=== PATIENT | female | born 1985 | race Caucasian/White ===

== ENCOUNTER 2020-03-24 23:27 | Emergency (ER) | payer BC, SELFPAY ==
[2020-03-24 23:31] VITALS: BP 153/108; PULSE 92; RESP 20; TEMP 36.7; O2SAT 100
[2020-03-25] VITALS (7 sets, daily range): BP systolic 125–155; BP diastolic 74–106; PULSE 68–100; RESP 12–16; TEMP 37.3; O2SAT 97–100
--- NOTE | 2020-03-25 00:29 | ECG_ITS ---
Measurements Intervals [place] Rate: 85 P: 55 [place]: 161 QRS: 34 QRSD: 85 T: 39 QT: 359 QTc: 427 Interpretive Statements SINUS RHYTHM POSSIBLE LEFT ATRIAL ENLARGEMENT BASELINE ARTIFACT- I, II, III, AVR, AVL,A VF BORDERLINE ECG Electronically Signed On 03-25-2020 7:22:44 CDT by Dave Smith D.O.
[2020-03-25 00:41] LABS: Basophils Absolute Auto 0.1 K/mm3 (0.0-0.1); Eosinophils Absolute Auto 0.2 K/mm3 (0-0.3); Hematocrit 37.4 % (37.0-47.0); Immature Granulocyte Absolute 0.01 K/mm3 (0.00-0.031); Immature Granulocyte Percent A 0.1 % (0-0.5); Lymphocytes Absolute Auto 2.71 K/mm3 (0.9-3.2); Lymphocytes Percent Auto 39.1 % (18.3-44.2); Mean Corpuscular HGB Conc 32.1 g/dl (32-36); Mean Platelet Volume 11.3 fl (7.4-10.4); Monocytes Absolute Auto 0.6 K/mm3 (0.1-0.6); Monocytes Percent Auto 8.4 % (2.6-8.5); Neutrophils Absolute Auto 3.4 K/mm3 (1.3-6.7); Neutrophils Percent Auto 48.4 % (45.5-73.1); Platelet Count Result 257 k/mm3 (150-375); Red Blood Count 4.45 M/mm3 (4.2-5.4); Red Cell Distribution Width 13.5 % (11.5-14.5); White Blood Count 6.9 K/mm3 (4.5-10.0)
[2020-03-25 00:53] LABS: Blood Urea Nitrogen 8 mg/dL (7-17); Calcium 9.5 mg/dL (8.4-10.2); Carbon Dioxide 25 mmol/L (22-30); Chloride 103 mmol/L (98-107); Estimated CRCL calculation 141 ml/min; Estimated Glomerular Filt Rate > 60; Glucose 109 mg/dL (65-105); Potassium 3.6 mmol/L (3.4-5.0); Sodium 138 mmol/L (137-145)
--- NOTE | 2020-03-25 01:57 | ED.DIZZY ---
HPI - Dizziness General Chief Complaint: Dizziness Stated Complaint: dizziness Time Seen by Provider: 03/25/20 01:39 Source: patient Mode of arrival: ambulatory Limitations: no limitations History of Present Illness HPI Narrative: This patient is a 35 year old female who presents for evaluation of dizziness. She reports intermittent dizziness since Monday. 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 She reports her dizziness is worse with bending, standing and when she has to wear her mask at work. She describes it as intermittent episodes in which she feels like she is going to pass out. She feels better now. She denies any other symptoms. Related Data Allergies Allergy/AdvReac Type Severity Reaction Status Date / Time Sulfa (Sulfonamide Allergy Unknown Rash Verified 04/04/17 13:20 Antibiotics) Review of Systems Review of Systems: All systems reviewed & are unremarkable except as noted in HPI and below Constitutional: Constitutional: Denies chills and Denies fever(s) Eyes: Eyes: Reports no additional eye complaints and Denies change in vision ENT: Reports dizziness Cardiovascular: Cardiovascular: Denies chest pain Respiratory: Respiratory: Denies cough and Denies dyspnea Gastrointestinal: Gastrointestinal: Denies abdominal pain, Denies diarrhea, Denies nausea and Denies vomiting Musculoskeletal: Musculoskeletal: Denies back pain Neurologic: Reports dizziness PMFSH Past Medical History Medical History (Updated 03/25/20 @ 03:50 by Kimberly Gomez MD) Patient denies medical problems Social History Social History (Updated 03/25/20 @ 01:58 by Kimberly Gomez MD) Smoking status: Never smoker Exam Narrative: Exam Narrative: GENERAL: Well-appearing, well-nourished, and in no acute distress. HEAD: Normocephalic, atraumatic EYES: PERRLA and EOMI, conjunctiva clear without discharge EARS: TM's clear bilaterally without erythema or dullness NOSE: Nares clear, no rhinorrhea or epistaxis THROAT:Mucous membranes moist, Oropharynx normal without erythema, exudate, peritonsillar swelling or fluctuance NECK: Supple, without lymphadenopathy or mass RESPIRATORY: No respiratory distress, Airway patent, Respirations non-labored, Clear to auscultation without rales, rhonchi or wheeze HEART: Regular rate and rhythm. No murmur heard. Normal peripheral pulses. ABDOMEN: Soft, nontender, nondistended, normal active bowel sounds. No masses. No rebound or guarding, No organomegaly. EXTREMITIES: No edema, normal strength with full range of motion. SKIN: Warm, dry, normal color without rash NEURO: Alert and oriented x3. CN 2-12 grossly intact. No focal deficits. PSYCH: Normal mood and affect. Course Reevaluation(s) Reevaluation #1: Nursing staff states patient feels better. She has no focal deficits. Date: 03/25/20 Time: 03:47 Vital Signs Vital signs: Vital Signs Temperature 98.1 F 03/24/20 23:31 Pulse Rate 92 03/24/20 23:31 Respiratory Rate 20 03/24/20 23:31 Blood Pressure 153/108 H 03/24/20 23:31 Pulse Oximetry 100 03/24/20 23:31 Temperature 99.1 F 03/25/20 00:26 Pulse Rate 100 03/25/20 03:55 Respiratory Rate 15 03/25/20 03:55 Blood Pressure 133/84 03/25/20 03:55 Pulse Oximetry 97 03/25/20 03:55 MDM - Dizziness Lab Data Attestation: I reviewed the patient's lab results. Result diagrams: 03/25/20 00:35 03/25/20 00:35 Labs: Lab Results 03/25/20 03/25/20 Range/Units 00:35 00:35 WBC 6.9 (4.5-10.0) K/mm3 RBC 4.45 (4.2-5.4) M/mm3 Hgb 12.0 (12.0-15.0) g/dL Hct 37.4 (37.0-47.0) % MCV 84.0 (80-100) fl MCH 27.0 (26-34) pg MCHC 32.1 (32-36) g/dl RDW 13.5 (11.5-14.5) % Plt Count 257 (150-375) k/mm3 MPV 11.3 H (7.4-10.4) fl Immature Gran % (Auto) 0.1 (0-0.5) % Neut % (Auto) 48.4 (45.5-73.1) % Lymph % (Auto) 39.1 (18.3-44.2) % [place] % (Auto) 8.4 (2.6-8
[2020-03-25] MEDS: MECLIZINE HCL 25 MG TABLET PO (02:18)
== END 2020-03-25 03:55 | disposition home or self-care (01) ==
PROVIDERS: Emergency Provider General Practice
DX: R42 Dizziness and giddiness (principal); R94.31 Abnormal electrocardiogram [ECG] [EKG]
CPT/HCPCS: 36415; 80048; 81025; 85025; 93005; 99284; A9270

== ENCOUNTER 2020-03-26 08:23 | Emergency (ER) | payer BC, SELFPAY ==
[2020-03-26 08:27] VITALS: BP 155/91; PULSE 84; RESP 16; TEMP 37.1; O2SAT 100
--- NOTE | 2020-03-26 08:32 | ECG_ITS ---
Measurements Intervals [place] Rate: 79 P: 45 [place]: 165 QRS: 29 QRSD: 99 T: 24 QT: 365 QTc: 419 Interpretive Statements SINUS RHYTHM BASELINE ARTIFACT- I, III, AVL NORMAL ECG Electronically Signed On 03-26-2020 8:39:22 CDT by Dave Smith D.O.
--- NOTE | 2020-03-26 08:57 | ED.DIZZY ---
HPI - Dizziness General Chief Complaint: Dizziness Stated Complaint: STILL HAVING DIZZINESS, WEAK HANDS Time Seen by Provider: 03/26/20 08:35 History of Present Illness HPI Narrative: Dizziness for the past few days. Continuos. worse with head movement and standing. She also noticed that wearing mask seems to increase her symptoms. Associated with SOB and tingling in hands. She was seen here for this 2 days ago and had negative work-up. She was discharged with meclizine prescription. She returns today because she was on her way to work and her symptoms once again worsened. No nausea, vomiting, fever. She has a h/o pseudotumor cerebri. Related Data Allergies Allergy/AdvReac Type Severity Reaction Status Date / Time Sulfa (Sulfonamide Allergy Unknown Rash Verified 03/26/20 08:30 Antibiotics) Review of Systems Review of Systems: All systems reviewed & are unremarkable except as noted in HPI and below Constitutional: Constitutional: Denies fever(s) Eyes: Eyes: Denies change in vision ENT: Reports dizziness and Denies sore throat Cardiovascular: Cardiovascular: Denies chest pain Respiratory: Respiratory: Denies cough Gastrointestinal: Gastrointestinal: Denies abdominal pain, Denies nausea and Denies vomiting Genitourinary: Genitourinary: Denies dysuria Neurologic: Reports numbness Psychiatric: Psychiatric: Reports anxiety [facility] Past Medical History Medical History Patient denies medical problems Social History Social History Smoking status: Never smoker Gender identity (if verbalized by the patient): Female Exam Const: General: healthy appearing, no acute distress and alert Orientation/consciousness: patient oriented x3 HENMT: Head: normal to inspection Ears: TM's normal bilaterally Eyes: Conjunctivae: conjunctivae normal Pupils: Equal, round and reactive pupils present EOM: EOMs intact bilaterally Neck: Neck: normal visual inspection and no lymphadenopathy Chest: Chest palpation & inspection: no tenderness Resp: Effort & Inspection: normal respiratory effort Auscultation: clear to auscultation bilaterally, no rales, no rhonchi and no wheezes Cardio: Jugular venous distension: no JVD Rate: regular rate Rhythm: regular rhythm Heart sounds: no murmurs GI: Inspection: non-distended GI Palp: Yes Soft to palpation and No Tenderness to palpation present (GI) Skin: General skin exam: normal color Neuro: General: patient oriented x3, moves all extremities, no focal motor deficits and CN's II-XI intact bilaterally Cranial nerves: Yes Nystagmus not present Speech: normal speech Extrem: General: normal to inspection Psych: Appearance: grossly normal and well kempt Mental Status: mental status grossly normal Affect: normal affect Attitude: cooperative Course Vital Signs Vital signs: Vital Signs Temperature 37.1 C 03/26/20 08:27 Pulse Rate 84 03/26/20 08:27 Respiratory Rate 16 03/26/20 08:27 Blood Pressure 155/91 H 03/26/20 08:27 Pulse Oximetry 100 03/26/20 08:27 Temperature 37.1 C 03/26/20 08:27 Pulse Rate 76 03/26/20 10:41 Respiratory Rate 18 03/26/20 10:41 Blood Pressure 137/73 03/26/20 10:41 Pulse Oximetry 99 03/26/20 10:41 MDM - Dizziness MDM Narrative Medical decision making narrative: She seems to have mild vertigo. Walking with stable gait. No sign of otitis. Does not require further emergent imaging. Will need outpatient follow-up if symptoms continue Medical Records Attestation: I reviewed the patient's medical records. Lab Data Attestation: I reviewed the patient's lab results. Result diagrams: 03/26/20 08:53 03/26/20 08:53 Labs: Lab Results 03/26/20 03/26/20 Range/Units 08:53 08:53 WBC 6.6 (4.5-10.0) K/mm3 RBC 4.58 (4.2-5.4) M/mm3 Hgb 12.4 (12.0-15.0) g/dL Hct 38.8 (37.
[2020-03-26 09:11] VITALS: BP 142/84; PULSE 71
[2020-03-26 09:12] VITALS: BP 142/94; BP 143/96; PULSE 74; PULSE 75
[2020-03-26 09:18] LABS: Basophils Absolute Auto 0.1 K/mm3 (0.0-0.1); Basophils Percent Auto 1.1 % (0.2-1.2); Eosinophils Absolute Auto 0.2 K/mm3 (0-0.3); Eosinophils Percent Auto 3.7 % (0-4.4); Hematocrit 38.8 % (37.0-47.0); Hemoglobin 12.4 g/dL (12.0-15.0); Immature Granulocyte Absolute 0.02 K/mm3 (0.00-0.031); Immature Granulocyte Percent A 0.3 % (0-0.5); Lymphocytes Absolute Auto 2.39 K/mm3 (0.9-3.2); Lymphocytes Percent Auto 36.4 % (18.3-44.2); Mean Corpuscular Hemoglobin 27.1 pg (26-34); Mean Corpuscular Volume 84.7 fl (80-100); Mean Platelet Volume 12.2 fl (7.4-10.4); Monocytes Absolute Auto 0.6 K/mm3 (0.1-0.6); Monocytes Percent Auto 8.8 % (2.6-8.5); Neutrophils Absolute Auto 3.3 K/mm3 (1.3-6.7); Neutrophils Percent Auto 49.7 % (45.5-73.1); Platelet Count Result 262 k/mm3 (150-375); Red Blood Count 4.58 M/mm3 (4.2-5.4); Red Cell Distribution Width 13.7 % (11.5-14.5); White Blood Count 6.6 K/mm3 (4.5-10.0)
[2020-03-26 09:24] LABS: Blood Urea Nitrogen 9 mg/dL (7-17); Carbon Dioxide 27 mmol/L (22-30); Chloride 102 mmol/L (98-107); Estimated CRCL calculation 123 ml/min; Estimated Glomerular Filt Rate > 60; Glucose 109 mg/dL (65-105); Potassium 3.8 mmol/L (3.4-5.0); Sodium 138 mmol/L (137-145)
[2020-03-26] MEDS: MECLIZINE HCL 25 MG TABLET PO (09:50)
--- NOTE | 2020-03-26 09:56 | PC.NURSE ---
Irrigated pts ears with no issue. Pt stated that she felt more dizzy during irrigation. Moderate amounts of yellow drainage came out of both ears.
[2020-03-26 10:41] VITALS: BP 137/73; PULSE 76; RESP 18; O2SAT 99
--- NOTE | 2020-03-26 10:41 | PC.NURSE ---
Pt was walked in fam. Pt states she feels a little dizzy, but not as bad as before. Will inform Dr. Fischer
== END 2020-03-26 11:24 | disposition home or self-care (01) ==
PROVIDERS: Emergency Provider Emergency Medicine
DX: R42 Dizziness and giddiness (principal)
CPT/HCPCS: 36415; 80048; 81025; 85025; 93005; 99284; A9270

== ENCOUNTER 2020-04-17 13:51 | Outpatient (CLI) | payer BC, SELFPAY ==
--- NOTE | 2020-04-17 | ECHO_ITS ---
Patient Info Name: Kathy Waters Age: 35 years : 1985 Gender: Female Ht: 66 in Wt: 257 lbs BSA: 2.39 m2 HR: 86 bpm BP: 140 / 84 mmHg Technical Quality: Good Exam Date: 04/17/2020 2:21 PM Exam Location: [facility] Patient Status: Outpatient Admit Date: 04/17/2020 Staff Ordering Physician: Juan Silverio MD Director Of Tax Services: Yu Alvarenga RDCS Attending Provider: Juan Silverio MD Referring Physician: Jean Claude DILLON; Exam Type: CA echo doppler color flow Study Info Indications R55 - Syncope and collapse Complete two-dimensional, color flow and Doppler transthoracic echocardiogram is performed. Summary 1. Left ventricular chamber dimension is normal. 2. Left ventricular systolic function is normal, estimated at 60-65%. 3. The left ventricular diastolic function is normal. 4. E/e' 7 is not elevated. 5. There is trace tricuspid valve regurgitation. 6. No pulmonary hypertension, estimated pulmonary arterial systolic pressure is 31 mmHg. Left Ventricle E/e' 7 is not elevated. Left ventricular chamber dimension is normal. Left ventricular systolic function is normal, estimated at 60-65%. The left ventricular diastolic function is normal. Right Ventricle Right ventricular chamber dimension is normal. Right ventricular systolic function is normal. Left Atria Left atrial chamber dimension is normal. Right Atria Right atrial chamber dimension is normal. Aortic Valve The aortic valve is trileaflet. There is no aortic valve stenosis. There is no aortic valve regurgitation. Pulmonic Valve There is no pulmonic regurgitation. Mitral Valve There is no mitral valve stenosis. There is no mitral valve regurgitation. Tricuspid Valve There is trace tricuspid valve regurgitation. No pulmonary hypertension, estimated pulmonary arterial systolic pressure is 31 mmHg. Pericardium/Pleural There is no pericardial effusion. Inferior Vena Cava Normal inferior vena cava with >50% collapse upon inspiration consistent with normal right atrial pressure, 5 mmHg. Aorta The aortic root size at the sinus of Valsalva is normal. Left Ventricular Outflow Tract Name Value Normal LVOT 2D LVOT Diameter 1.9 cm LVOT Doppler LVOT Peak Gradient 6 mmHg LVOT Mean Gradient 3 mmHg LVOT VTI 24 cm LVOT VTI/AV VTI Ratio 0.8 LVOT Stroke Volume 66 ml LVOT CO 5.4 l/min LVOT CI 2.3 l/min/m2 Pulmonic Valve Name Value Normal RVOT Doppler RVOT Peak Gradient 5 mmHg PV Doppler PV Peak Gradient 7 mmHg Mitral Valve -------
== END 2020-04-17 13:52 | disposition home or self-care (01) ==
PROVIDERS: PCP Emergency Medicine; Visit Provider Emergency Medicine
DX: R55 Syncope and collapse (principal)
CPT/HCPCS: 93306

== ENCOUNTER 2022-05-13 07:39 | Outpatient (CLI) | payer BC, SELFPAY ==
--- NOTE | 2022-05-13 | ECHO_ITS ---
Patient Info Name: Kathy Waters Age: 37 years : 1985 Gender: Female Ht: 65 in Wt: 260 lbs BSA: 2.39 m2 HR: 81 bpm BP: 122 / 92 mmHg Technical Quality: Good Exam Date: 05/13/2022 8:19 AM Exam Location: [facility] Patient Status: Outpatient Admit Date: 05/13/2022 Staff Ordering Physician: GordonLuly Benefits Coordinator: Yu Alvarenga RDCS Attending Provider: Gordon, Luly GUPTA Referring Physician: Gordon WOLFE; Exam Type: CA echo doppler color flow Study Info Indications I42.9 - Cardiomyopathy, unspecified Complete two-dimensional, color flow and Doppler transthoracic echocardiogram is performed. Summary 1. Complete two-dimensional, color flow and Doppler transthoracic echocardiogram is performed. 2. Left ventricular chamber dimension is normal. 3. Left ventricular systolic function is normal, estimated at 60-65%. 4. The left ventricular diastolic function is normal. 5. E/e' 7 is not elevated. 6. Global longitudinal strain is normal at -18.6%. 7. There is trace mitral valve regurgitation. 8. There is trace tricuspid valve regurgitation. 9. No pulmonary hypertension, estimated pulmonary arterial systolic pressure is 30 mmHg. Left Ventricle E/e' 7 is not elevated. Global longitudinal strain is normal at -18.6%. Left ventricular chamber dimension is normal. Left ventricular systolic function is normal, estimated at 60-65%. The left ventricular diastolic function is normal. Right Ventricle Right ventricular systolic function is normal and with normal TAPSE 2.1 cm. Right ventricular chamber dimension is normal. Left Atria Left atrial chamber dimension is normal. Right Atria Right atrial chamber dimension is normal. Aortic Valve The aortic valve is trileaflet. There is no aortic valve stenosis. There is no aortic valve regurgitation. Pulmonic Valve There is no pulmonic regurgitation. Mitral Valve There is no mitral valve stenosis. There is trace mitral valve regurgitation. Tricuspid Valve There is trace tricuspid valve regurgitation. No pulmonary hypertension, estimated pulmonary arterial systolic pressure is 30 mmHg. Pericardium/Pleural There is no pericardial effusion. Inferior Vena Cava Normal inferior vena cava with >50% collapse upon inspiration consistent with normal right atrial pressure, 5 mmHg. Aorta The aortic root size at the sinus of Valsalva is normal. Left Ventricular Outflow Tract Name Value Normal LVOT 2D LVOT Diameter 2.0 cm LVOT Doppler LVOT Peak Gradient 5 mmHg LVOT Mean Gradient 3 mmHg LVOT VTI 22 cm LVOT VTI/AV VTI Ratio 0.9 LVOT Stroke Volume 69 ml LVOT CO 5.2 l/min LVOT CI 2.2 l/min/m2 Pulmonic Valve Name Value Normal
== END 2022-05-13 07:40 | disposition home or self-care (01) ==
LOC: ANHCARD 07:40
PROVIDERS: Visit Provider Nurse Practitioner Family
DX: I42.9 Cardiomyopathy, unspecified (principal)
CPT/HCPCS: 93306

== ENCOUNTER 2022-05-23 17:43 | Outpatient (CLI) | payer BC, SELFPAY ==
--- NOTE | ~2022-05-23 | CT_ITS ---
EXAMINATION: CT brain wo con DATE: 05/23/2022 18:37 INDICATION: CRAMP AND SPASM . TECHNIQUE: Computed tomography (CT) of the head was performed without intravenous contrast. The mA wa s adjusted according to patient size. Iterative reconstruction technique was employed. The dose-lengt h product was 605.33 mGy-cm. COMPARISON: None FINDINGS: No acute intracranial hemorrhage or extra-axial fluid collection. No hydrocephalus, mass, or herniation. No acute ischemic infarct. Unremarkable dural venous sinus attenuation. No acute osseous abnormality. The aerated spaces are clear. IMPRESSION: No acute intracranial process. Reviewed, dictated and finalized at location K.
== END 2022-05-23 17:44 | disposition home or self-care (01) ==
PROVIDERS: PCP Nurse Practitioner Family; Visit Provider Nurse Practitioner Family
DX: R25.2 Cramp and spasm (principal)
CPT/HCPCS: 70450

== ENCOUNTER 2022-07-28 18:35 | Emergency (ER) | payer BC, SELFPAY ==
--- NOTE | ~2022-07-28 | CT_ITS ---
EXAMINATION: CT abdomen pelvis wo con DATE: 07/28/2022 19:33 INDICATION: Right lower quadrant pain. TECHNIQUE: Computed tomography (CT) of the abdomen and pelvis was performed without intravenous contr ast. The dose-length product was 1279.90 mGy-cm. Automated exposure control and iterative reconstruct ion technique were employed. COMPARISON: None. FINDINGS: Lung bases are unremarkable. Heart size is normal. No significant pleural or pericardial ef fusion. There is a 2 mm distal right ureteral stone with mild hydronephrosis. The liver, spleen, pancreas,, a drenal glands and left kidney are unremarkable. Normal appendix. Nonobstructive bowel pattern. No chen e air or free fluid. Gallbladder is present. IMPRESSION: 1. Distal right ureteral stone just proximal to the UVJ measuring 2 mm. Mild hydronephrosis. Reviewed, dictated and finalized at location A. IMPRESSION: 1. Distal right ureteral stone just proximal to the UVJ measuring 2 mm. Mild hy dronephrosis.
--- NOTE | ~2022-07-28 | XR_ITS ---
XR abdomen/kub 1V 07/28/2022 19:48 INDICATION: Flank pain TECHNIQUE: KUB COMPARISON: None FINDINGS: Bowel gas pattern is normal. There is no evidence of free air, mass, organomegaly, ascites or obstruction. No abnormal calculi are seen. The bones appear intact. Moderate lesion in the righ t ilium, consistent with a bone island. IMPRESSION: 1: No acute abdominal abnormality identified. Reviewed, dictated and finalized at location A.
[2022-07-28 18:37] VITALS: BP 146/96; PULSE 100; RESP 20; TEMP 36.3; O2SAT 98
--- NOTE | 2022-07-28 19:00 | ED.GENADULT ---
HPI - General Adult General Chief complaint: Urogenital-Female Stated complaint: abd pain Time Seen by Provider: 07/28/22 18:50 Source: RN notes reviewed History of Present Illness HPI narrative: Patient presents emergency room from home for right lower quadrant Cb pain. Patient states pain began suddenly approximately 30 minutes ago the pain is located in right lower quadrant and radiates around to the back pain is described as sharp and stabbing in nature. States that she has been having some dysuria earlier today with the symptoms she denies any fevers or chills chest pain or shortness of breath states she not taking thing for the pain denies any nausea vomiting or diarrhea Related Data Allergies Allergy/AdvReac Type Severity Reaction Status Date / Time Sulfa (Sulfonamide Allergy Unknown Rash Verified 03/26/20 08:30 Antibiotics) Review of Systems Review of Systems: Gen.: Denies fevers or chills ENT: Denies congestion Respiratory: Denies shortness of breath or cough CV: Denies chest pain or palpitations GI: Reports right lower quadrant abdominal pain nausea, emesis or diarrhea reports dysuria Musculoskeletal: Denies back pain or muscle pain Neuro: Denies numbness, tingling, weakness or focal weakness Skin: Denies rash Except as documented, all other systems reviewed and negative [facility] Past Medical History Medical History (Updated 07/28/22 @ 21:06 by Ignacio Dow DO) Patient denies medical problems Social History Social History Smoking status: Never smoker Gender identity (if verbalized by the patient): Female Exam Narrative: APPEARANCE: No acute distress, nontoxic, resting in bed HEENT: Normocephalic, atraumatic, OMM RESPIRATORY: No respiratory distress, clear to auscultation bilaterally with no rhonchi wheezing or rales CARDIOVASCULAR: RRR s murmur ABDOMINAL: Soft nondistended tender palpation right lower quadrant no tenderness right upper quadrant and left upper quadrant left lower quadrant no rebound or guarding MUSCULOSKELETAl: Moves all extremities. No clubbing, cyanosis or edema. NEURO: Awake and alert. Following commands, speech normal, no focal deficits SKIN:: Warm, dry. Normal Color PSYCHIATRIC: Normal affect/mood Course Course Emergency Course: Discussed with Dr. Ware presentation and work-up discussed CT scan and UTI. At this time feels patient may be discharged with Cipro and follow-up as an outpatient Discussed with patient results of workup and diagnosis. Discussed need for follow-up with primary care, proper use of medication, and reasons to return to the emergency department. Patient understands and agrees to current treatment plan Vital Signs Vital signs: Vital Signs Temperature 97.4 F L 07/28/22 18:37 Pulse Rate 100 07/28/22 18:37 Respiratory Rate 20 07/28/22 18:37 Blood Pressure 146/96 H 07/28/22 18:37 Pulse Oximetry 98 07/28/22 18:37 Oxygen Delivery Room Air 07/28/22 18:37 Temperature 97.4 F L 07/28/22 18:37 Pulse Rate 100 07/28/22 18:37 Respiratory Rate 20 07/28/22 18:37 Blood Pressure 146/96 H 07/28/22 18:37 Pulse Oximetry 98 07/28/22 18:37 Oxygen Delivery Room Air 07/28/22 18:37 Medical Decision Making Vital Signs Vital Signs: Vital Signs Temperature 97.4 F L 07/28/22 18:37 Pulse Rate 100 07/28/22 18:37 Respiratory Rate 20 07/28/22 18:37 Blood Pressure 146/96 H 07/28/22 18:37 Pulse Oximetry 98 07/28/22 18:37 Oxygen Delivery Room Air 07/28/22 18:37 Temperature 97.4 F L 07/28/22 18:37 Pulse Rate 100 07/28/22 18:37 Respiratory Rate 20 07/28/22 18:37 Blood Pressure 146/96 H 07/28/22 18:37 Pulse Oximetry 98 07/28/22 18:37 Oxygen Delivery Room Air 07/28/22 18:37 Lab Data Result diagrams: 07/28/22 19:52 07/28/22 19:52 Labs: Lab Results 07/28/22 07/28/22 07/28/22 Range/Units
[2022-07-28] MEDS: KETOROLAC 30 MG/ML VIAL (*BKC) IV PUSH (19:20)
[2022-07-28] MEDS: SODIUM CHLORIDE 0.9% IV 1,000 ML 999 ML IV CONT (19:20)
[2022-07-28] MEDS: TAMSULOSIN HCL 0.4 MG CAPSULE PO (19:51)
[2022-07-28 20:00] LABS: Basophils Absolute Auto 0.1 K/mm3 (0.0-0.1); Basophils Percent Auto 0.6 % (0.2-1.2); Eosinophils Absolute Auto 0.3 K/mm3 (0-0.3); Eosinophils Percent Auto 3.6 % (0-4.4); Hematocrit 41.1 % (37.0-47.0); Hemoglobin 14.3 g/dL (12.0-15.0); Immature Granulocyte Absolute 0.01 K/mm3 (0.00-0.031); Immature Granulocyte Percent A 0.1 % (0-0.5); Lymphocytes Absolute Auto 3.87 K/mm3 (0.9-3.2); Lymphocytes Percent Auto 40.5 % (18.3-44.2); Mean Corpuscular HGB Conc 34.8 g/dl (32-36); Mean Corpuscular Hemoglobin 31.2 pg (26-34); Mean Corpuscular Volume 89.5 fl (80-100); Mean Platelet Volume 12.6 fl (7.4-10.4); Monocytes Absolute Auto 0.7 K/mm3 (0.1-0.6); Monocytes Percent Auto 7.5 % (2.6-8.5); Neutrophils Absolute Auto 4.6 K/mm3 (1.3-6.7); Neutrophils Percent Auto 47.7 % (45.5-73.1); Platelet Count Result 238 k/mm3 (150-375); Red Blood Count 4.59 M/mm3 (4.2-5.4); Red Cell Distribution Width 11.9 % (11.5-14.5); White Blood Count 9.6 K/mm3 (4.5-10.0)
[2022-07-28 20:01] LABS: Add Urine Microscopic? YES; Appearance Urine Cloudy (Clear); Bilirubin Urine 1+ (Negative); Blood Urine 3+ (Negative); Color Urine Brown (Yellow); Glucose Urine UA Negative (Negative); Ketones Urine 1+ mg/dL (Negative); Leukocyte Esterase Ur Trace LEU/UL (Negative); Nitrate Urine Negative (Negative); Protein Urine 1+ mg/dL (Negative); Specific Grav Ur 1.025 (1.001-1.035)
[2022-07-28 20:11] LABS: Alanine Aminotransferase 35 U/L (6-35); Albumin Level 4.8 g/dL (3.5-5.1); Alkaline Phosphatase 47 U/L (38-126); Anion Gap 12 mmol/L (8-16); Aspartate Amino Transferase 27 U/L (14-36); Bilirubin,Total 0.5 mg/dL (0.2-1.3); Blood Urea Nitrogen 10 mg/dL (7-17); Calcium 9.2 mg/dL (8.4-10.2); Carbon Dioxide 23 mmol/L (22-30); Chloride 102 mmol/L (98-107); Estimated CRCL calculation 102 ml/min; Estimated Glomerular Filt Rate > 60; Glucose 124 mg/dL (65-110); Lipase 101 U/L (23-300); Potassium 3.4 mmol/L (3.4-5.0); Sodium 137 mmol/L (137-145)
[2022-07-28 20:13] LABS: Mucus Urine Heavy /lpf; RBC Urine >75 /hpf (0-2); Squamous Epithelial Cell Urine Many /hpf (Few); WBC Urine 16-20 /hpf
[2022-07-28] MEDS: CIPROFLOXACIN 500 MG TAB PO (21:13)
[2022-07-28] MEDS: HYDROcodone/acetaminophen (*CRX) 5-325 MG TABLET 1 TAB PO (21:13)
[2022-07-28 21:28] VITALS: PULSE 92; RESP 18; O2SAT 98
== END 2022-07-28 21:28 | disposition home or self-care (01) ==
PROVIDERS: Emergency Provider Emergency Medicine
DX: N13.2 Hydronephrosis with renal and ureteral calculous obstruction (principal); N39.0 Urinary tract infection, site not specified
CPT/HCPCS: 36415; 74018; 74176; 80053; 81001; 81025; 83690; 85025; 87077; 87086; 87186; 96361; 96374; 99284; A9270; J1885; J7030

== ENCOUNTER 2022-08-12 06:54 | Outpatient (CLI) | payer BC, SELFPAY ==
--- NOTE | ~2022-08-12 | CT_ITS ---
EXAMINATION: CT abdomen pelvis wo con DATE: 08/12/2022 07:20 INDICATION: Right ureteral stone TECHNIQUE: Computed tomography (CT) of the abdomen and pelvis was performed without intravenous contr ast. The dose-length product (DLP) was 660.04 mGy-cm. Automated exposure control and iterative recons truction technique were employed. COMPARISON: 07/28/2022 FINDINGS: The lung bases are clear. The heart size is normal. There is a small sliding hiatal hernia. The liver, spleen, pancreas, gallbladder, and adrenal glands are normal. The kidneys are unremarkabl e. No stones are identified in the kidneys, ureters, or bladder. There is no hydronephrosis or hydrou reter. No pathologically enlarged abdominal or pelvic lymph nodes are identified. There is no free in traperitoneal gas or evidence of bowel obstruction. The appendix is normal. There is mild lumbar spon dylosis at L5-S1. A bone island is noted in the right iliac wing. IMPRESSION: 1. No urolithiasis identified. Reviewed, dictated and finalized at location B.
--- NOTE | ~2022-08-12 | XR_ITS ---
EXAMINATION: XR abdomen/kub 1V INDICATION: Right ureteral stone TECHNIQUE: Supine views of the abdomen were obtained on 2 radiographs. COMPARISON: 07/28/2022 FINDINGS: No urolithiasis is identified. The bowel gas pattern is normal. A bone island is noted in t he right iliac wing. There is elevation of the right hemidiaphragm. The left lung base is clear. IMPRESSION: 1. No urolithiasis identified. Reviewed, dictated and finalized at location B.
== END 2022-08-12 06:55 | disposition home or self-care (01) ==
LOC: ANHIMG 06:56
PROVIDERS: Visit Provider Nurse Practitioner Adult Health
DX: N20.1 Calculus of ureter (principal)
CPT/HCPCS: 74018; 74176

== ENCOUNTER 2022-12-02 09:46 | Outpatient (CLI) | payer OTHER, SELFPAY ==
--- NOTE | ~2022-12-02 | MR_ITS ---
MRI of the brain Clinical History: Multiple sclerosis Technique: Axial and sagittal T1-weighted images were acquired. These were followed by axial T2-weigh jason, diffusion weighted, gradient, and FLAIR images. Sagittal FLAIR images were also performed. Follo wing intravenous administration of 19 cc MultiHance gadolinium, T1-weighted fat-sat imaging was perfo rmed in the axial, coronal, and sagittal planes. Findings: No abnormal signal seen in the right parenchyma. No acute infarct, intracranial hemorrhage, or mass lesion. No white matter lesions identified. Ventricles and subarachnoid spaces are unremarkable. Orbits are unremarkable. Paranasal sinuses and m astoid air cells are clear. Major intracranial flow voids are intact. Sagittal midline structures are intact. No abnormal postcontrast enhancement identified. IMPRESSION: Unremarkable exam. Reviewed, dictated and finalized at location . ER HELPER IMPRESSION: Unremarkable exam.
--- NOTE | ~2022-12-02 | MR_ITS ---
MRI of the cervical spine Clinical History: Radiculopathy, multiple sclerosis Technique: Axial T2-weighted and gradient images, and sagittal T1-weighted, T2-weighted, and STIR yassine ges were acquired. Following intravenous administration of 19 cc MultiHance gadolinium, T1-weighted f at-sat imaging was performed in the axial and sagittal planes. Findings: There is no fracture or subluxation of the cervical spine. Vertebral bodies maintain normal height and alignment. No suspicious bone marrow signal reality identified. At C2-C3, there is no disc bulge or herniation. No spinal canal stenosis, cord compression, or neural foraminal narrowing. At C3-C4, there is minimal disc bulge. No spinal canal stenosis, cord compression, or neural foramina l narrowing. At C4-C5, there is minimal disc bulge. No spinal canal stenosis, cord compression, or neural foramina l narrowing. At C5-C6, there is disc bulge at the right paracentral region which minimally flattens the ventral co rd. Bilateral neural foramina are preserved. At C6-C7, there is minimal disc bulge. No apollo spinal canal stenosis, cord compression, or neural fo raminal narrowing. No definite abnormal signal seen in the spinal cord. No epidural mass or collection. Paravertebral so ft tissues are unremarkable. No abnormal postcontrast enhancement identified. Impression: Disc bulge at C5-C6 minimally flattens the ventral cord. No spinal cord lesion identified. Reviewed, dictated and finalized at [facility]. [place] POS SPECIALIST Impression: Disc bulge at C5-C6 minimally flattens the ventral cord. No spinal cord lesion identified.
== END 2022-12-02 09:47 ==
LOC: MICIMG 09:49
DX: G35 Multiple sclerosis (principal); M54.12 Radiculopathy, cervical region; G40.209 Localization-related (focal) (partial) symptomatic epilepsy and epileptic syndromes with complex partial seizures, not intractable, without status epilepticus; M50.222 Other cervical disc displacement at C5-C6 level
CPT/HCPCS: 70553; 72156; A9577